=== PATIENT | male | born 1960 | race Caucasian/White ===

== ENCOUNTER 2017-08-06 19:09 | Emergency (ER) | payer OTHER ==
[~2017-08-06] VITALS: Ht 180.3 cm; Wt 126.1 kg
[~2017-08-06 19:09] MED LIST: ALLOPURINOL 10100 M1 PO; DIABETA; INDOMETHACIN 5050 M1 PO; INDOMETHACIN 5050 MG PO; MEDROLDOSEPACK PO; METFORMIN; PERCOCET 5-3251 EACH PO; PREDNISONE 20 M20 M1 PO
[2017-08-06 19:12] VITALS: BP 157/97
[2017-08-06] MEDS ORDERED: LISINOPRIL10 MG PO (19:15)
== END 2017-08-06 19:35 | disposition left against medical advice (07) ==
LOC: M.ERS 19:09
DX: Z53.21 Procedure and treatment not carried out due to patient leaving prior to being seen by health care provider (principal)

== ENCOUNTER → 2017-11-05 | Outpatient (CLI) | payer OTHER ==
[~2017-11-05] MED LIST changes: +LISINOPRIL10 MG PO
[2017-11-05 12:08] LABS: HEMATOCRIT 39.9 % (42.0-52.0); HEMOGLOBIN 13.6 gm/dL (14.0-18.0); MCH 29.3 pg (26.0-34.0); MCHC 34.1 g/dL (28.0-37.0); MCV 85.8 fL (80.0-100.0); MPV 9.2 fl. (7.2-11.1); RBC 4.65 mil/uL (4.50-6.00); WBC 6.4 thou/uL (4.0-11.0)
[2017-11-05 12:17] LABS: ALBUMIN 3.6 g/dL (3.4-5.0); CALCIUM 9.1 mg/dL (8.5-10.1); CREATININE 0.8 mg/dL (0.6-1.3); POTASSIUM 4.1 mmol/L (3.5-5.1); TOTAL BILIRUBIN 0.5 mg/dL (<0.1-1.0); TOTAL PROTEIN 7.2 g/dL (6.4-8.2)
[2017-11-07 10:09] LABS: B.burgdorf.IgG Negative (()); B.burgdorf.IgM Negative (())
== END ==
LOC: M.LAB 11:15
PROVIDERS: Nurse Practitioner Family
DX: Z11.2 Encounter for screening for other bacterial diseases (principal); R79.89 Other specified abnormal findings of blood chemistry

== ENCOUNTER 2019-03-23 05:03 | Emergency (ER) | payer OTHER ==
[~2019-03-23] VITALS: Ht 180.3 cm; Wt 113.4 kg
[2019-03-23] MEDS ORDERED: PREDNISONE 20 M20 M1 PO (05:19)
[2019-03-23] MEDS ORDERED: PRINIVIL10 MG PO (05:19)
[2019-03-23] MEDS ORDERED: GLYBURIDE 5 MG T5 M1 PO (05:19)
[2019-03-23] MEDS ORDERED: PERCOCET 5-3251 EACH PO (05:19)
[2019-03-23] MEDS ORDERED: GLUCOPHAGE500 MG PO (05:19)
[2019-03-23 05:42] VITALS: BP 139/95
== END 2019-03-23 05:42 | disposition home or self-care (01) ==
LOC: M.ERS 05:03
DX: M10.072 Idiopathic gout, left ankle and foot (principal); I10 Essential (primary) hypertension; E11.9 Type 2 diabetes mellitus without complications; F17.210 Nicotine dependence, cigarettes, uncomplicated

== ENCOUNTER → 2019-08-05 | Outpatient (CLI) | payer OTHER ==
[~2019-08-05] MED LIST changes: +GLUCOPHAGE500 MG PO; +GLYBURIDE 5 MG T5 M1 PO; +PRINIVIL10 MG PO
[2019-08-05 06:26] LABS: ABSOLUTE BASOPHILS 0.2 thou/uL (0.0-0.2); ABSOLUTE EOSINOPHILS 0.3 thou/uL (0.0-0.7); ABSOLUTE LYMPHOCYTES 2.5 thou/uL (0.8-5.3); ABSOLUTE MONOCYTES 0.7 thou/uL (0.0-1.2); ABSOLUTE NEUTROPHILS 2.9 thou/uL (1.6-8.1); BASOPHILS 2.8 %; EOSINOPHILS 4.2 %; HEMATOCRIT 38.7 % (42.0-52.0); HEMOGLOBIN 13.2 gm/dL (14.0-18.0); LYMPHOCYTES 37.7 %; MCH 27.5 pg (26.0-34.0); MCV 80.8 fL (80.0-100.0); MPV 9.2 fl. (7.2-11.1); NUCLEATED RBCS 0 /100WBC; PLATELET COUNT* 196 thou/uL (150-400); POLYS 44.3 %; RBC 4.79 mil/uL (4.50-6.00); RDW-CV 16.7 % (10.5-14.5); WBC 6.6 thou/uL (4.0-11.0)
[2019-08-05 06:30] LABS: URINE BILIRUBIN NEGATIVE (Negative); URINE BLOOD TRACE (Negative); URINE CLARITY CLEAR; URINE COLOR YELLOW; URINE GLUCOSE-RANDOM NEGATIVE (Negative); URINE KETONES NEGATIVE (Negative); URINE LEUKOCYTES-REFLEX NEGATIVE (Negative); URINE NITRITE-REFLEX NEGATIVE (Negative); URINE PROTEIN NEGATIVE (Negative); URINE UROBILINOGEN 0.2 E.U./dl (0.2-1.0)
[2019-08-05 06:37] LABS: ALBUMIN 3.4 g/dL (3.4-5.0); ALKALINE PHOSPHATASE 85 U/L (46-116); ANION GAP 7 mmol/L (7-16); BUN 21 mg/dL (7-18); CALCIUM 8.1 mg/dL (8.5-10.1); CHLORIDE 105 mmol/L (98-107); CHOLESTEROL 141 mg/dL (<200); CO2 29 mmol/L (21-32); GLUCOSE 179 mg/dL (70-99); HDL CHOLESTEROL 43 mg/dL (>40); LDL CHOLESTEROL 88 mg/dL (<100); POTASSIUM 4.5 mmol/L (3.5-5.1); SGOT 9 U/L (15-37); SGPT 18 U/L (30-65); SODIUM 141 mmol/L (136-145); TC:HDL 3.3 Ratio (Not establshd); TOTAL BILIRUBIN 0.3 mg/dL (<0.1-1.0); TOTAL PROTEIN 7.1 g/dL (6.4-8.2); TRIGLYCERIDE 51 mg/dL (<150); VLDL 10 mg/dL (<40)
[2019-08-05 06:38] LABS: SERUM ASSESSMENT Clear
[2019-08-06 02:07] LABS: GLYCOHEMOGLOBIN (HGB A1C) 7.4 % (4.8-5.6)
== END ==
LOC: M.LAB 06:03
PROVIDERS: Family Medicine
DX: Z00.01 Encounter for general adult medical examination with abnormal findings (principal); I10 Essential (primary) hypertension; E11.9 Type 2 diabetes mellitus without complications; E66.8 Other obesity; G47.30 Sleep apnea, unspecified

== ENCOUNTER → 2020-10-28 | Outpatient (CLI) | payer OTHER ==
[2020-10-28 06:20] LABS: HEMATOCRIT 38.9 % (42.0-52.0); HEMOGLOBIN 13.2 gm/dL (14.0-18.0); MCH 29.1 pg (26.0-34.0); MCHC 33.9 g/dL (28.0-37.0); MPV 9.7 fl. (7.2-11.1); RBC 4.52 mil/uL (4.50-6.00); WBC 9.2 thou/uL (4.0-11.0)
[2020-10-28 06:37] LABS: ALBUMIN 3.6 g/dL (3.4-5.0); ALKALINE PHOSPHATASE 92 U/L (46-116); ANION GAP 11 mmol/L (7-16); BUN 13 mg/dL (7-18); CALCIUM 8.9 mg/dL (8.5-10.1); CHLORIDE 103 mmol/L (98-107); CHOLESTEROL 191 mg/dL (<200); CO2 25 mmol/L (21-32); GLUCOSE 214 mg/dL (70-99); HDL CHOLESTEROL 47 mg/dL (>40); LDL CHOLESTEROL 121 mg/dL (<100); SGOT 8 U/L (15-37); SGPT 22 U/L (30-65); SODIUM 139 mmol/L (136-145); TC:HDL 4.1 Ratio (Not establshd); TOTAL BILIRUBIN 0.5 mg/dL (<0.1-1.0); TOTAL PROTEIN 7.3 g/dL (6.4-8.2); TRIGLYCERIDE 119 mg/dL (<150); VLDL 24 mg/dL (<40)
[2020-10-28 06:39] LABS: SERUM ASSESSMENT CLEAR
[2020-10-29 02:05] LABS: GLYCOHEMOGLOBIN (HGB A1C) 10.6 % (4.8-5.6)
== END ==
LOC: M.LAB 05:48
PROVIDERS: ATTEND Family Medicine
DX: Z00.00 Encounter for general adult medical examination without abnormal findings (principal); E11.9 Type 2 diabetes mellitus without complications